=== PATIENT | female | born 1945 | race Two or more races ===

== ENCOUNTER → 2025-06-15 | Outpatient (CLI) | payer MEDICARE, SELFPAY ==
--- NOTE | 2025-06-15 10:16 | XR_ITS ---
Examination: Knee, left , 3 views Technique: Knee AP, lateral, oblique 3 views Date and time of exam: August 07, 2025 10:31 AM Indications: Diagnosis knee pain osteoarthritis 20 years Findings: Significant osteopenia. Severe narrowing [id number] medial joint space left knee. Advanced osteoarthritis patellofemoral joint No fracture Impression: Severe narrowing [id number] medial joint space left knee Advanced osteoarthritis patellofemoral joint
== END | disposition home or self-care (01) ==
PROVIDERS: PCP Family Medicine; Referring Provider Orthopaedic Surgery; Visit Provider Orthopaedic Surgery
DX: M17.12 Unilateral primary osteoarthritis, left knee (principal); M25.862 Other specified joint disorders, left knee
CPT/HCPCS: 73562